=== PATIENT | female | born 1955 | race Caucasian/White ===

== ENCOUNTER 2020-06-02 12:17 | Outpatient (REF) | payer OTHER, SELFPAY ==
--- NOTE | 2020-06-02 12:24 | US_ITS ---
EXAMINATION: US RETROPERITONEAL LIMITED (RENAL ONLY) CLINICAL INFORMATION: Hematuria, renal stones COMPARISON: Abdominal ultrasound dated 12/18/2007 and MRI abdomen dated 11/21/[address] abdomen dated September 2007. TECHNIQUE: Real-time imaging of the kidneys. FINDINGS: RIGHT KIDNEY: 12.0 x 4.5 x 4.8 cm (SAG x AP x TRV). The kidney is normal in size, contour, and echogenicity. Renal cortical thickness is normal. No calculi or focal parenchymal lesions. No hydronephrosis. LEFT KIDNEY: 11.3 x 5.1 x 5.5 cm (SAG x AP x TRV). The kidney is normal in size, contour, and echogenicity. Renal cortical thickness is normal. There are new small central cystic areas questionable for mild hydronephrosis versus peripelvic cysts. No calculi or mass. The liver is echogenic. US/US renal BI IMPRESSION: Normal right kidney. Question new mild left hydronephrosis versus peripelvic cysts..
== END 2020-06-02 12:18 | disposition home or self-care (01) ==
LOC: HO.US 12:17
PROVIDERS: PCP Internal Medicine; Visit Provider Internal Medicine
DX: R31.9 Hematuria, unspecified (principal)
CPT/HCPCS: 76775

== ENCOUNTER 2020-06-10 08:39 | Outpatient (REF) | payer OTHER, SELFPAY ==
[2020-06-10 09:42] LABS: Appearance Urine CLEAR; Color Urine YELLOW; Glucose Urine UA NEG (NEG); Leukocyte Esterase Urine NEG (NEG); Nitrite Urine NEG (NEG); Specific Gravity - Urine 1.025 (1.005-1.025); Urine Blood TRACE (NEG); Urine Cytology See Pathology rpt; Urine Ketones NEG (NEG); Urine Protein NEG (NEG-TRACE)
[2020-06-10 09:56] LABS: Mucus Urine TRACE /LPF; RBC Urine 0-2 /HPF (0); Squamous Epithelial Cell Urine 1+ /LPF; WBC Urine 0-2 /HPF (0-4)
[2020-06-10 09:57] LABS: Alanine Aminotransferase 21 U/L (0-31); Albumin Level 4.3 g/dL (3.5-5.0); Alkaline Phosphatase 84 U/L (39-117); Anion Gap 12 (12-20); Aspartate Amino Transferase 19 U/L (5-31); Bilirubin Direct < 0.2 mg/dL (0.0-0.5); Bilirubin Total 0.3 mg/dL (0.0-1.0); Blood Urea Nitrogen 14 mg/dL (9-16); Calcium 9.3 mg/dL (8.4-10.2); Carbon Dioxide 27 mmol/L (22-29); Chloride 105 mmol/L (96-108); Estimated Glomerular Filt Rate > 60; Glucose Random 98 mg/dL (60-115); Potassium 4.8 mmol/l (3.3-5.1); Sodium 139 mmol/L (135-145); Total Protein 6.5 g/dL (6.5-8.0)
== END 2020-06-10 08:40 | disposition home or self-care (01) ==
LOC: HO.LAB 08:39
PROVIDERS: PCP Internal Medicine; Visit Provider Physician Assistant
DX: R31.29 Other microscopic hematuria (principal); R30.0 Dysuria; N39.0 Urinary tract infection, site not specified; R31.9 Hematuria, unspecified
CPT/HCPCS: 80048; 80076; 81001; 88112

== ENCOUNTER 2020-06-11 11:15 | Outpatient (REF) | payer OTHER, SELFPAY ==
--- NOTE | 2020-06-11 11:19 | US_ITS ---
EXAMINATION: US PELVIS LIMITED (BLADDER) CLINICAL INFORMATION: Other microscopic hematuria. COMPARISON: Renal ultrasound 06/02/2020. Ultrasound abdomen 12/18/2007. MRI abdomen 11/21/2007. CT abdomen 10/11/2007. TECHNIQUE: Real-time imaging of the bladder. FINDINGS: BLADDER: Well distended and normal. Bilateral ureteral jets are demonstrated. Prevoid bladder volume is 501 mL. Postvoid bladder volume is 23 mL. US/US bladder IMPRESSION: Normal appearance of the bladder. Post void residual bladder volume of 23 mL.
== END 2020-06-11 11:16 | disposition home or self-care (01) ==
LOC: HO.HMGCX 11:15
PROVIDERS: PCP Internal Medicine; Visit Provider Physician Assistant
DX: R10.2 Pelvic and perineal pain (principal); R31.29 Other microscopic hematuria
CPT/HCPCS: 76857

== ENCOUNTER 2020-10-25 07:36 | Outpatient (REF) | payer OTHER, SELFPAY ==
[2020-10-25 08:40] LABS: Alanine Aminotransferase 25 U/L (0-31); Anion Gap 12 (12-20); Aspartate Amino Transferase 22 U/L (5-31); Blood Urea Nitrogen 13 mg/dL (9-16); Calcium 9.3 mg/dL (8.4-10.2); Carbon Dioxide 26 mmol/L (22-29); Chloride 103 mmol/L (96-108); Cholesterol 271 mg/dL; Estimated Glomerular Filt Rate > 60; Glucose Fasting 107 mg/dL (60-99); HDL Cholesterol 48 mg/dL; LDL Cholesterol Calculated 160 mg/dl; Potassium 4.4 mmol/L (3.3-5.1); Sodium 137 mmol/L (135-145); Triglycerides 318 mg/dL
[2020-10-25 09:05] LABS: Free T4 (Free Thyroxine) 1.27 ng/dL (0.71-1.85); Thyroid Stimulating Hormone 4.48 uIU/mL (0.32-4.0); Vitamin D 25-OH Total 15.5 ng/mL (>30)
== END 2020-10-25 07:37 | disposition home or self-care (01) ==
LOC: HO.LAB 07:36
PROVIDERS: PCP Internal Medicine; Visit Provider Internal Medicine
DX: Z00.00 Encounter for general adult medical examination without abnormal findings (principal); E78.5 Hyperlipidemia, unspecified; E03.9 Hypothyroidism, unspecified; I10 Essential (primary) hypertension; M85.88 Other specified disorders of bone density and structure, other site
CPT/HCPCS: 36415; 80048; 80061; 82306; 84439; 84443; 84450; 84460

== ENCOUNTER 2020-12-22 08:04 | Outpatient (REF) | payer OTHER, SELFPAY ==
--- NOTE | ~2020-12-22 | MM_ITS ---
EXAMINATION: MM SCREENING DIGITAL BREAST TOMOSYNTHESIS, BILATERAL CLINICAL INFORMATION: Screening. Asymptomatic. The lifetime risk of breast cancer based on the Tyrer-Cuzick Model is 6%. COMPARISON: Mammography: 10/18/2017, 10/08/2015 TECHNIQUE: Digital breast tomosynthesis is performed in both the craniocaudal and mediolateral oblique views along with computer-aided detection (CAD). Synthesized 2D images are generated from the tomosynthesis. Additional left MLO view is provided. FINDINGS: The breasts are heterogeneously dense, which may obscure small masses (ACR BI-RADS breast composition Category c). There are no significant masses, abnormal calcifications, or other abnormalities. The axilla and skin contours are unremarkable. No significant changes from prior studies. MM/MM tomosynthesis screening BI IMPRESSION: No mammographic evidence of malignancy. ASSESSMENT: BI-RADS 1: Negative RECOMMENDATION: Routine annual mammography screening. This patient's information was entered into a reminder system with a target due date for their next mammogram.
== END 2020-12-22 08:05 | disposition home or self-care (01) ==
LOC: HO.MAMMO 08:04
PROVIDERS: PCP Internal Medicine; Visit Provider Internal Medicine
DX: Z12.31 Encounter for screening mammogram for malignant neoplasm of breast (principal)
CPT/HCPCS: 77063; 77067

== ENCOUNTER 2021-10-28 08:25 | Outpatient (REF) | payer OTHER, SELFPAY ==
[2021-10-28 09:46] LABS: Alanine Aminotransferase 61 U/L (0-31); Anion Gap 13 (12-20); Aspartate Amino Transferase 42 U/L (5-31); Blood Urea Nitrogen 13 mg/dL (9-16); Calcium 9.7 mg/dL (8.4-10.2); Carbon Dioxide 24 mmol/L (22-29); Chloride 107 mmol/L (96-108); Cholesterol 239 mg/dL; Estimated Glomerular Filt Rate > 60; Glucose Fasting 104 mg/dL (60-99); HDL Cholesterol 43 mg/dL; LDL Cholesterol Calculated 149 mg/dl; Potassium 4.4 mmol/L (3.3-5.1); Sodium 140 mmol/L (135-145); Triglycerides 235 mg/dL
[2021-10-28 09:59] LABS: Free T4 (Free Thyroxine) 1.34 ng/dL (0.71-1.85); Thyroid Stimulating Hormone 3.84 uIU/mL (0.32-4.0); Vitamin D 25-OH Total 23.9 ng/mL (>30)
== END 2021-10-28 08:26 | disposition home or self-care (01) ==
LOC: HO.LAB 08:25
PROVIDERS: PCP Internal Medicine; Visit Provider Internal Medicine
DX: E78.5 Hyperlipidemia, unspecified (principal); M85.88 Other specified disorders of bone density and structure, other site; E03.9 Hypothyroidism, unspecified; N95.9 Unspecified menopausal and perimenopausal disorder; R73.01 Impaired fasting glucose
CPT/HCPCS: 36415; 80048; 80061; 82306; 84439; 84443; 84450; 84460

== ENCOUNTER 2022-05-31 15:33 | Outpatient (REF) | payer OTHER, SELFPAY ==
--- NOTE | ~2022-05-31 | MM_ITS ---
EXAMINATION: MM SCREENING DIGITAL BREAST TOMOSYNTHESIS, BILATERAL CLINICAL INFORMATION: Screening. Asymptomatic. COMPARISON: Mammography: 12/22/2020, 12/18/2017, 10/08/2015 TECHNIQUE: Digital breast tomosynthesis is performed in both the craniocaudal and mediolateral oblique views along with computer-aided detection (CAD). Synthesized 2D images are generated from the tomosynthesis. FINDINGS: The breasts are heterogeneously dense, which may obscure small masses (ACR BI-RADS breast composition Category c). There are no significant masses, abnormal calcifications, or other abnormalities. Parenchymal pattern is similar to prior exams. No developing density or architectural abnormality. No significant changes. Again, there are benign grouped coarse calcifications posterior 9:00 left breast. The axilla are unremarkable. MM/MM tomosynthesis screening BI IMPRESSION: No mammographic evidence of malignancy. ASSESSMENT: BI-RADS 2: Benign RECOMMENDATION: Routine annual mammography screening. This patient's information was entered into a reminder system with a target due date for their next mammogram.
== END 2022-05-31 15:34 | disposition home or self-care (01) ==
LOC: HO.MAMMO 15:33
PROVIDERS: Visit Provider Internal Medicine
DX: Z12.31 Encounter for screening mammogram for malignant neoplasm of breast (principal)
CPT/HCPCS: 77063; 77067

== ENCOUNTER 2022-06-14 06:55 | Outpatient (REF) | payer OTHER, SELFPAY ==
[2022-06-14 08:07] LABS: Alanine Aminotransferase 36 U/L (0-31); Anion Gap 14 (12-20); Aspartate Amino Transferase 33 U/L (5-31); Blood Urea Nitrogen 11 mg/dL (9-16); Calcium 9.7 mg/dL (8.4-10.2); Carbon Dioxide 27 mmol/L (22-29); Chloride 104 mmol/L (96-108); Cholesterol 256 mg/dL; Estimated Glomerular Filt Rate > 60; Glucose Fasting 98 mg/dL (60-99); HDL Cholesterol 39 mg/dL; LDL Cholesterol Calculated 153 mg/dl; Potassium 4.7 mmol/L (3.3-5.1); Sodium 140 mmol/L (135-145); Triglycerides 323 mg/dL
[2022-06-14 08:31] LABS: Free T4 (Free Thyroxine) 1.33 ng/dL (0.71-1.85); Thyroid Stimulating Hormone 2.18 uIU/mL (0.32-4.0)
[2022-06-14 09:28] LABS: Estimated Average Glucose 105 mg/dL; Hemoglobin A1c % 5.3 %
[2022-06-14 09:48] LABS: Vitamin D 25-OH Total 18.4 ng/mL (>30)
== END 2022-06-14 06:56 | disposition home or self-care (01) ==
LOC: HO.LAB 06:55
PROVIDERS: PCP Internal Medicine; Visit Provider Internal Medicine
DX: Z00.01 Encounter for general adult medical examination with abnormal findings (principal); E78.5 Hyperlipidemia, unspecified; K21.9 Gastro-esophageal reflux disease without esophagitis; M85.88 Other specified disorders of bone density and structure, other site; R73.01 Impaired fasting glucose; E03.9 Hypothyroidism, unspecified
CPT/HCPCS: 36415; 80048; 80061; 82306; 83036; 84439; 84443; 84450; 84460

== ENCOUNTER 2022-10-28 06:33 | Outpatient (REF) | payer OTHER, SELFPAY ==
[2022-10-28 12:36] LABS: Estimated Average Glucose 100 mg/dL; Hemoglobin A1c % 5.1 %
[2022-10-28 12:49] LABS: Alanine Aminotransferase 28 U/L (0-31); Aspartate Amino Transferase 27 U/L (5-31); Cholesterol 226 mg/dL; Glucose Fasting 106 mg/dL (60-99); HDL Cholesterol 47 mg/dL; LDL Cholesterol Calculated 143 mg/dl; Triglycerides 183 mg/dL
[2022-10-28 13:07] LABS: Free T4 (Free Thyroxine) 1.62 ng/dL (0.71-1.85); Vitamin D 25-OH Total 70.5 ng/mL (>30)
== END 2022-10-28 06:34 | disposition home or self-care (01) ==
LOC: HO.HMGCLDS 06:33
PROVIDERS: PCP Internal Medicine; Visit Provider Internal Medicine
DX: E03.9 Hypothyroidism, unspecified (principal); E55.9 Vitamin D deficiency, unspecified; M85.88 Other specified disorders of bone density and structure, other site; R73.01 Impaired fasting glucose; E78.5 Hyperlipidemia, unspecified
CPT/HCPCS: 36415; 80061; 82306; 82947; 83036; 84439; 84443; 84450; 84460

== ENCOUNTER 2023-06-18 06:29 | Outpatient (REF) | payer OTHER, SELFPAY ==
[2023-06-18 07:57] LABS: Estimated Average Glucose 100 mg/dL; Hemoglobin A1c % 5.1 % (<6.0)
[2023-06-18 08:36] LABS: Alanine Aminotransferase 16 U/L (0-31); Anion Gap 12 (12-20); Aspartate Amino Transferase 18 U/L (5-31); Blood Urea Nitrogen 14 mg/dL (9-16); Calcium 9.5 mg/dL (8.4-10.2); Carbon Dioxide 26 mmol/L (22-29); Chloride 106 mmol/L (96-108); Cholesterol 250 mg/dL (<200); Estimated Glomerular Filt Rate > 60; Glucose Fasting 93 mg/dL (60-99); HDL Cholesterol 53 mg/dL (>40); LDL Cholesterol Calculated 162 mg/dL (<100); Potassium 4.6 mmol/L (3.3-5.1); Sodium 139 mmol/L (135-145); Triglycerides 178 mg/dL (<150)
[2023-06-18 08:53] LABS: Thyroid Stimulating Hormone 2.15 uIU/mL (0.32-4.0); Vitamin D 25-OH Total 28.9 ng/mL (>30)
== END 2023-06-18 06:30 | disposition home or self-care (01) ==
LOC: HO.LAB 06:29
PROVIDERS: PCP Internal Medicine; Visit Provider Internal Medicine
DX: R73.01 Impaired fasting glucose (principal); M85.88 Other specified disorders of bone density and structure, other site; E03.9 Hypothyroidism, unspecified; E78.5 Hyperlipidemia, unspecified; Z86.39 Personal history of other endocrine, nutritional and metabolic disease; Z78.0 Asymptomatic menopausal state
CPT/HCPCS: 36415; 80048; 80061; 82306; 83036; 84443; 84450; 84460

== ENCOUNTER 2023-07-17 13:10 | Outpatient (AMB) | payer OTHER, SELFPAY ==
--- NOTE | 2023-07-17 13:46 | A.OFFPC_ITS ---
Vital Signs 07/17/23 13:47 Height 4 ft 11 in Weight 132 lb BMI 26.7 BP 135/74 Blood Pressure Location Rt brachial Position Sitting Pulse 65 Pulse Source Pulse Oximeter Pulse Oximetry (%) 98 Oxygen Delivery Method Room Air Intake Visit Reasons: Annual PE Intake Note: Pt is here for her Annual PE Allergies No Known Allergies [No Known Allergies*] Allergy (Verified 08/23/23 11:04) Medication List - Last Reconciled 08/23/23 by Nanette Sanford MD cholecalciferol (vitamin D3) 1,250 mcg PO QWEEK 3 months levothyroxine 75 mcg PO DAILY omeprazole 40 mg PO DAILY Tobacco use date assessed: 07/17/23 Fall risk assessment: No Falls in past year Last assessed Fall Risk: 07/17/23 Dental Screening Dental Screen Date: 07/17/23 Did you have a dental visit in the last 12 months?: Yes Did you have a dental problem in the last 6 months where you did not have access to dental care?: No Was dental information given to patient?: Patient has dentist HPI Annual PE HPI Details 67-year-old lady with hypothyroidism, os teopenia of multiple sites, has impaired fasting glucose, dyslipidemia diet controlled, and chronic GERD, here today for her physical exam. She has been following healthy diet and has been exercising regularly. Has lost weight with lifestyle changes and feels better, more energy. She is due for her colonoscopy, has history of tubular adenoma, last procedure done by Dr. Magallanes was in 2015. Patient however does not want to do the procedure and would like to 1st do Cologuard testing. She is scheduled already for her bone density scan and screening mammogram in July 2023. [facility] Medical History (Updated 08/23/23 @ 11:19 by Nanette Sanford MD) Osteopenia of multiple sites Smoker unmotivated to quit Refused influenza vaccine Impaired fasting glucose Osteopenia of lumbar spine Tubular adenoma of colon History of chronic pancreatitis Dyslipidemia Acquired hypothyroidism Chronic GERD Surgical History Hx of colonoscopy Family History Mother Lung cancer Social History Housing: House Alcohol intake: never Patient Tobacco Use Status: Current everyday Tobacco user Cigarettes Per Day: 4 e-Cigarette/Vaping Use: Never Used service: No Current occupational status: employed Cognitive needs: No Hearing needs: No Vision needs: Yes Questionnaire PHQ-9 Over the last 2 weeks, how often have you been bothered by any of the following problems? Depression Screening Interpretation: Negative Depression Screening Done: Yes Source: Developed by Drs. Real Chatterjee, Alena Bullard, Boy Ordonez and colleagues, with an educational josh from [employer]. Thrive Questionnaire Date Thrive assessed: 10/30/22 AUDIT C Alcohol Use Questionnaire (AUDIT-C) 1. How often do you have a drink containing alcohol?: Never Total Score: 0 LATONYA-7 AMB Questionnaire LATONYA-7 Date LATONYA - 7 assessed: 10/30/22 Source: Developed by Drs. Real Chatterjee, Alena Bullard, Boy Ordonez and colleagues, with an educational josh from [employer]. Review of Systems Const Denies body aches, Denies fatigue, Denies fever(s), Denies headache(s) and Denies weakness Eyes Denies change in vision ENT Denies dizziness, Denies headache(s), Denies nasal congestion, Denies nasal discharge and Denies sore throat Card Denies chest pain, Denies lightheadedness, Denies palpitations, Denies dyspnea and Reports dyspnea on exertion Resp Denies chest congestion, Denies cough, Denies dyspnea, Reports dyspnea on exertion and Denies wheezing GI Denies abdominal pain, Denies change in bowel habits and Denies heartburn Denies urinary frequency, Denies dysuria and Reports urinary urgency Musc Reports no additional complaints Skin/Breast Denies breast skin changes, Denies breast pain, Denies breast mass, Denies lesio ns and Denies rash Neuro Denies dizziness, Denies headache(s) and Denies weakness Psych Reports as per HPI Endo Denies fatigue, Denies polydipsia, Denies polyuria and Denies palpitations Albino/Lymph Denies easy bruising Aller/Immun Denies seasonal rhinorrhea and Denies wheezing Physical exam (Primary Care) Vital Signs: Last Vital Signs Pulse 65 07/17/23 13:47 BP 135/74 07/17/23 13:47 Pulse Ox 98 07/17/23 13:47 Oxygen Delivery Method Room Air 07/17/23 13:47 BMI result Body Mass Index 26.7 Tobacco/Smoking Status: Tobacco use Status Tobacco use date assessed 07/17/23 07/17/23 13:52 Patient Tobacco Use Status Current everyday Tobacco 07/17/23 13:52 e-Cigarette/Vaping Use Never Used 07/17/23 13:52 Are you ready to quit: No Depression Screening Interpretation: Negative Thrive Assessment: Date of Thrive Assessment Date Thrive assessed 10/30/22 07/17/23 13:52 Const General: comfortable, no acute distress, awake and Physically active Nutritional Appearance: obese Orientation/consciousness: patient oriented x3 HENMT Ears: hearing grossly normal bilaterally, external ears normal, TM's normal bilaterally and EAC's normal General nose exam: No nasal discharge present Mouth: Normal oral and palatal mucosa present, tongue normal, oropharynx normal and moist mucous membranes Eyes General: appearance normal, both eyes and all related structures Eyelids: Yes eyelid abnormality (Upper eyelid slightly drooping bilaterally) Neck Neck: Yes full ROM, Yes no lymphadenopathy and Yes supple Thyroid: Thyroid normal Chest Breast/axilla palpation: normal palpation of the breasts Resp Auscultation: clear to auscultation bilaterally Cardio Other: S1-S2 present regular rate and rhythm GI Inspection: Yes obesity Palpation (GI): Soft to palpation, nontender, no guarding and no masses Auscultation: normal bowel sounds General: Yes no CVA tenderness Back/Spine/Pelvis Back: no CVA tenderness and No back tenderness Skin General skin exam: no rashes or lesions noted Neuro General: patient oriented x3, gait normal, moves all extremities, Normal light touch and pain sensation, no focal motor deficits and CN's II-XI intact bilaterally Extrem General: Yes full ROM, Yes no joint enlargement, Yes no pedal edema, Yes no calf tenderness and Yes normal gait Psych Appearance: grossly normal and well kempt Mental Status: mental status grossly normal Speech and movement: Normal speech and movement present Affect: normal affect Attitude: cooperative Thought process: Normal thought process present Immunizations pneumoc 20-denise conj-dip cr(PF) 0.5 mL IM syringe Performing Provider: Nanette Sanford MD Performing Location: [facility] Administered by: Tanvi Patricio CMA on 07/17/23 14:39 Dose Route Admin Location Dispensed Lot Number Expiration Date NDC Lawn Mower Sharpener 0.5 mL IM Right Deltoid 0.5 mL [id number] 02/27/24 9342-5640-13 WYETH/PFIZER VIS Given Date VIS Provided VIS Publication Date 07/17/23 Single Vaccine 21 Eligibility Eligibility Date Funding Source Not VFC Eligible 07/17/23 Private Results Reviewed Results Reviewed: Name: Marcia Gomez Age/Sex: 67/F : 1955 Unit#: [id number] Attend Dr: Nanette Sanford MD Re06/18/23 Status: DEP REF Location: .LAB Disch: SPEC : [id number] GIO: 06/18/23 STATUS: COMP REQ : [id number] RECD: 06/18/[address]: Nanette Sanford MD COMP: 06/18/23 ENTERED: 06/18/[address]: ORDERED: Met Prof Fast, AST, ALT, Lipid Panel, Vitamin D 25-OH, TSH Test Result Flag Reference Site Sodium 139 135-145 mmol/L Potassium 4.6 3.3-5.1 mmol/L CL 106 96-108 mmol/L CO2 26 22-29 mmol/L Gap 12 12-20 BUN 14 9-16 mg/dL Creat 0.76 0.5-1.4 mg/dL EGFR > 60 NOTE: For -[place] individuals, multiply the result by 1.210. Chronic Kidney Disease: Estimated GFR < 60 mL/min/1.73m2 Severe Kidney Disease: Estimated GFR < 15 mL/min/1.73m2 FBS 93 60-99 mg/dL CA 9.5 8.4-10.2 mg/dL AST (GOT) 18 5-31 U/L ALT (GPT) 16 0-31 U/L Triglyceride 178 H <150 mg/dL Desirable Triglyceride: less than 150 mg/dL Borderline High Triglyceride 150-199 mg/dL High Triglyceride: 200-499 mg/dL Very High Triglyceride: greater than or equal to 5OO mg/dL Cholesterol 250 H <200 mg/dL Desirable Cholesterol: less than 200 mg/dL Borderline High Cholesterol: 200-239 mg/dL High Cholesterol: greater than 239 mg/dL LDL Calculated 162 H <100 mg/dL Desirable LDL: less than 100 mg/dL Near Optimal/Above Optimal LDL: 110-129 mg/dL Borderline High LDL: 130-159 mg/dL High LDL: 160-189 mg/dL Very High LDL: greater than or equal to 190 mg/dL HDL 53 >40 mg/dL Desirable HDL: greater than 40 mg/dL Note: This HDL assay may give artificially low results in patients with liver disease. Vit D 25-OH Tot 28.9 L >30 ng/mL Health Based Reference Values* < 20 ng/mL Deficient 20-30 ng/mL Insufficient > 30 ng/mL Sufficient *Hardeep JIMENEZ. N Engl J Med. 2007;357:266-280 Care must be taken in interpreting Vitamin D results from different laboratories and methodologies. Published data demonstrated that results from patients undergoing hemodialysis may show a negative bias when tested with various automated 25-OH vitamin D assays when compared to LC-MS/MS. When testing samples from patients whose predominant fo rm of Vitamin D is Vitamin D2, such as patients receiving Vitamin D2 supplementation, results that are subtherapeutic should be confirmed with another method such as LC-MS/MS. TSH 3rd Gen. 2.15 0.32-4.0 uIU/mL TSH 3rd Generation ([facility]) Assessment and Plan Assessment & Plan (1) Annual visit for general adult medical examination with abnormal findings: Code(s): Z00.01 - Encounter for general adult medical examination with abnormal findings Plan: Discuss recent lab results with patient which showed high LDL cholesterol. Continue with adherence to healthy eating habits , low-cholesterol less processed food, more fish, vegetables and get regular exercise Recommended dental visit every 6 months and regular eye exams, at least every 2 years. Take adequate calcium in diet and vitamin-D 3 at 2000 IU per cap once a day, in addition to weight-bearing exercises to help maintain good muscle tone and weight control. Instructed to do self-breast exam, and get yearly mammogram, ordered for next year, together with bone density scan. Patient does not want to get any flu vaccine, reminded to get COVID booster.. Has history of tubular adenoma but does not want to get colonoscopy, referred for Cologuard testing, and patient aware that if positive will need eventually a colonoscopy procedure. (2) Osteopenia of multiple sites: Code(s): M85.89 - Other specified disorders of bone density and structure, multiple sites Plan: Continue with regular weight-bearing exercise, take adequate calcium from dietary sources and vitamin-D 3 supplements. Ordered a bone density scan to be repeated Ordered vitamin-D level (3) Dyslipidemia: Code(s): E78.5 - Hyperlipidemia, unspecified Plan: Reviewed recent fasting lipid profile with patient with elevated LDL cholesterol . Stressed adherence to low-cholesterol diet and regular exercise, at least 30 minutes 3 to 4 times a week. Advised patient to make healthy food choices, eat more fruits, vegetables, whole grains, wild caught fish and low-fat dairy. Limit amount of meat and fried or fatty food products, as well as processed foods and fast foods. Follow-up scheduled with repeat fasting lipid panel in 4months (4) Acquired hypothyroidism: Code(s): E03.9 - Hypothyroidism, unspecified Plan: continue with levothyroxine 75 mcg once a day in a.m., repeat another TSH and free T4 months. (5) Smoker unmotivated to quit: Code(s): F17.200 - Nicotine dependence, unspecified, uncomplicated Plan: Patient strongly advised to stop smoking, as smoking damages blood vessels, degenerative of joints and spine, damage to lungs and heart., predisposes to developing certain cancers like lung, breast, bladder, colon. Recommended to try decreasing cigarette use by 1-2 cigarettes a day. Advised to monitor what triggers are for smoking so that this can be discussed on the next office visit. We can discuss different options to quit smoking when ready. (6) Refused influenza vaccine: Code(s): Z28.21 - Immunization not carried out because of patient refusal (7) Tubular adenoma of colon: Code(s): D12.6 - Benign neoplasm of colon, unspecified Plan: Declined getting procedure for colonoscopy but willing to do Cologuard testing, latter ordered. Patient aware that if test comes back positive, will need a colonoscopy, patient agreeable with plan Orders: Orders 2 XR DEXA axial skeleton 07/17/23 Z12.31 - Encounter for screening mammogram for malignant neoplasm of breast, M85.89 - Other specified disorders of bone density and structure, multiple sites, E89.40 - Asymptomatic postprocedural ovarian failure Free T4 (Free Thyroxine) 10/29/23 E03.9 - Hypothyroidism, unspecified, M85.89 - Other specified disorders of bone density and structure, multiple sites, E78.5 - Hyperlipidemia, unspecified Vitamin D 25-OH Total 10/29/23 M85.89 - Other specified disorders of bone density and structure, multiple sites, E78.5 - Hyperlipidemia, unspecified, E03.9 - Hypothyroidism, unspecified, E55.9 - Vitamin D deficiency, unspecified Lipid Panel 10/29/23 M85.89 - Other specified disorders of bone density and structure, multiple sites, E78.5 - Hyperlipidemia, unspecified, E03.9 - Hypothyroidism, unspecified Aspartate Amino Transferase 10/29/23 M85.89 - Other specified disorders of bone density and structure, multiple sites, E78.5 - Hyperlipidemia, unspecified, E03.9 - Hypothyroidism, unspecified MM tomosynthesis screening BI 07/17/23 Z12.31 - Encounter for screening mammogram for malignant neoplasm of breast, M85.89 - Other specified disorders of bone density and structure, multiple sites, E89.40 - Asymptomatic postprocedural ovarian failure Thyroid Stimulating Hormone 10/29/23 M85.89 - Other specified disorders of bone density and structure, multiple sites, E78.5 - Hyperlipidemia, unspecified, E03.9 - Hypothyroidism, unspecified Alanine Aminotransferase 10/29/23 M85.89 - Other specified disorders of bone density and structure, multiple sites, E78.5 - Hyperlipidemia, unspecified, E03.9 - Hypothyroidism, unspecified Pneumococcal 20 Immunization 07/17/23 Z23 - Encounter for immunization Referrals Cologuard Test Z12.11 - Encounter for screening for malignant neoplasm of colon, Z12.12 - Encounter for screening for malignant neoplasm of rectum Medications: Changed From cholecalciferol (vitamin D3) 1,250 mcg PO QWEEK 3 months 13 caps 0RF To cholecalciferol (vitamin D3) 1,250 mcg PO QWEEK 13 caps 0RF 3 months Coding Level of Care Code Est Pt Prev Care >65y(43038) Diagnoses Annual visit for general adult medical examination with abnormal findings Z00.01 Osteopenia of multiple sites M85.89 Dyslipidemia E78.5 Acquired hypothyroidism E03.9 Smoker unmotivated to quit F17.200 Refused influenza vaccine Z28.21 Tubular adenoma of colon D12.6
[2023-07-17 13:47] VITALS: BP 135/74; PULSE 65; O2SAT 98; BMI 26.7
== END 2023-07-17 16:32 | disposition home or self-care (01) ==
PROVIDERS: Visit Provider Internal Medicine
DX: Z23 Encounter for immunization (principal)
CPT/HCPCS: 90471; 90677; 99397

== ENCOUNTER 2023-08-17 14:32 | Outpatient (REF) | payer OTHER, SELFPAY ==
--- NOTE | ~2023-08-17 | MM_ITS ---
EXAMINATION: BONE DENSITOMETRY CLINICAL INDICATION: Osteopenia. COMPARISON: Previous BD dated 10/18/2017 and baseline BD dated 12/30/2007. TECHNIQUE: Using a [employer] DXA System (software version: 13.1) manufactured by [employer], dual-energy x-ray absorptiometry was performed of the . The images are of good technical quality. Summary results are attached. FINDINGS: LEFT FEMUR, NECK: Current: BMD 0.811 g/cm2, Z-score 0.1, T-score -1.6, osteopenia. Prior: BMD 0.790 g/cm2. Baseline: BMD 0.826 g/cm2. LEFT FEMUR, TOTAL: Current: BMD 0.900 g/cm2, Z-score 0.6, T-score -0.9, normal, 2.0% decrease from previous, 4.7% decrease from baseline (<5% change is not significant). Prior: BMD 0.918 g/cm2. Baseline: BMD 0.944 g/cm2. AP SPINE L1-L4: Current: BMD 0.940 g/cm2, Z-score -0.2, T-score -2.0, osteopenia, 0.9% decrease from previous, 1.2% decrease from baseline (<5% change is not significant). Prior: BMD 0.949 g/cm2. Baseline: BMD 0.951 g/cm2. IDENTIFIED RISK FACTORS: Menopause, tobacco use (current smoker). HISTORY OF FRACTURE: Spine. MEDICATIONS: Vitamin D. MM/XR DEXA axial skeleton IMPRESSION: 1. DIAGNOSIS: Osteopenia based on the lowest T-score value of -2.0 in the lumbar spine applying World Health Organization criteria. 2. 10-YEAR FRACTURE RISK PREDICTION, FRAX: Major osteoporotic fracture (clinical spine, forearm, hip or shoulder) 10.3%. Hip fracture 2.3%. 3. Treatment Recommendations: NOF guidelines recommend consideration for treatment in postmenopausal women and men age 50 and older presenting with the following: -A hip or vertebral (clinical or morphometric) fracture. -T-score less than or equal to -2.5 at the femoral neck or spine after appropriate evaluation to exclude secondary causes. -Low bone mass at the hip or spine and a 10-year fracture probability by FRAX of greater than or equal to 3% for hip fracture or greater than or equal to 20% for major osteoporotic fracture based on the [place] adapted WHO algorithm. 4. Other Recommendations: All treatment decisions require clinical judgment and consideration of individual patient factors, including patient preferences, comorbidities, previous drug use, risk factors not captured in the FRAX model (e.g. frailty, falls, vitamin D deficiency, increased bone turnover, interval significant decline in bone density) and possible under or overestimation of fracture risk by FRAX. Additional medical evaluation for secondary cause of low bone mineral density may be appropriate. FUTURE SCAN RECOMMENDATION: People with diagnosed cases of osteoporosis or at high risk for fracture should have regular bone mineral density tests. For patients eligible for Medicare, routine testing is allowed once every 2 years. The testing frequency can be increased to one year for patients who have rapidly progressing disease, those who are receiving or discontinuing medical therapy to restore bone mass, or have additional risk factors.
--- NOTE | ~2023-08-17 | MM_ITS ---
EXAMINATION: MM SCREENING DIGITAL BREAST TOMOSYNTHESIS, BILATERAL CLINICAL INFORMATION: Screening. Asymptomatic. COMPARISON: Mammography: This study is compared with prior exams dating back to 2018. TECHNIQUE: Digital breast tomosynthesis is performed in both the craniocaudal and mediolateral oblique views along with computer-aided detection (CAD). Synthesized 2D images are generated from the tomosynthesis. FINDINGS: The breasts are heterogeneously dense, which may obscure small masses (ACR BI-RADS breast composition Category c). There are no significant masses, abnormal calcifications, or other abnormalities. Few, adjacent, coarse benign calcifications are present in the medial aspect of the left breast. This is likely related to an involuting fibroadenoma. MM/MM tomosynthesis screening BI IMPRESSION: No mammographic evidence of malignancy. ASSESSMENT: BI-RADS BI-RADS 2 - Benign Findings RECOMMENDATION: Routine annual mammography screening. 1 year F/U This examination should not preclude the clinical evaluation of a suspicious palpable abnormality. This patient's information was entered into a reminder system with a target due date for their next mammogram.
== END 2023-08-17 14:33 | disposition home or self-care (01) ==
LOC: HO.MAMMO 14:32
PROVIDERS: PCP Internal Medicine; Visit Provider Internal Medicine
DX: Z12.31 Encounter for screening mammogram for malignant neoplasm of breast (principal); Z13.820 Encounter for screening for osteoporosis; Z78.0 Asymptomatic menopausal state; M85.89 Other specified disorders of bone density and structure, multiple sites; E89.40 Asymptomatic postprocedural ovarian failure
CPT/HCPCS: 77063; 77067; 77080

== ENCOUNTER → 2023-08-17 15:00 | Outpatient (BNV) | payer OTHER, SELFPAY | PROVIDERS: PCP Internal Medicine; Visit Provider Radiology Diagnostic Radiology | DX: Z12.31 Encounter for screening mammogram for malignant neoplasm of breast (principal) | CPT/HCPCS: 77063; 77067 ==

== ENCOUNTER 2023-10-12 08:02 | Outpatient (AMB) | payer OTHER, SELFPAY ==
[2023-10-12 08:04] VITALS: BP 135/64; PULSE 68; O2SAT 98; BMI 26.9
--- NOTE | 2023-10-12 08:04 | A.OFFPC_ITS ---
Vital Signs 10/12/23 08:04 Height 4 ft 11 in Weight 133 lb BMI 26.9 BP 135/64 Blood Pressure Location Rt brachial Position Sitting Pulse 68 Pulse Source Pulse Oximeter Pulse Oximetry (%) 98 Oxygen Delivery Method Room Air Intake Visit Reasons: hair loss concerns Intake Note: Pt is here today to discuss concerns of hair loss Allergies No Known Allergies [No Known Allergies*] Allergy (Verified 10/12/23 08:35) Medication List - Last Reconciled 10/12/23 by Nanette Sanford MD cholecalciferol (vitamin D3) 1,250 mcg PO QWEEK 3 months levothyroxine 75 mcg PO DAILY omeprazole 40 mg PO DAILY Tobacco use date assessed: 10/12/23 Fall risk assessment: No Falls in past year Last assessed Fall Risk: 10/12/23 Dental Screening Dental Screen Date: 10/12/23 Did you have a dental visit in the last 12 months?: Yes Did you have a dental problem in the last 6 months where you did not have access to dental care?: No Was dental information given to patient?: Patient has dentist HPI hair loss concerns HPI Details 67-year-old lady with hypothyroidism, po stmenopausal, has GERD, and recent COVID infection April 2023, here today complaining of diffuse hair loss which she and her hairdresser her started noticing for the last 3 months. She has been feeling well otherwise with no other complaints at present time. FOR[facility]LY [facility] Medical History Nonscarring hair loss Osteopenia of multiple sites Smoker unmotivated to quit Refused influenza vaccine Impaired fasting glucose Osteopenia of lumbar spine Tubular adenoma of colon History of chronic pancreatitis Dyslipidemia Acquired hypothyroidism Chronic GERD Surgical History Hx of colonoscopy Family History Mother Lung cancer Social History Housing: House Alcohol intake: never Patient Tobacco Use Status: Current everyday Tobacco user Cigarettes Per Day: 4 e-Cigarette/Vaping Use: Never Used service: No Current occupational status: employed Cognitive needs: No Hearing needs: No Vision needs: Yes Questionnaire PHQ-9 Over the last 2 weeks, how often have you been bothered by any of the following problems? 1. Little interest or pleasure in doing things: not at all 2. Feeling down, depressed, or hopeless: not at all 3. Trouble falling or staying asleep, or sleeping too much: not at all 4. Feeling tired or having little energy: not at all 5. Poor appetite or overeating: not at all 6. Feeling bad about yourself - or that you are a failure or have let yourself or your family down: not at all 7. Trouble concentrating on things, such as reading the newspaper or watching television: not at all 8. Moving or speaking so slowly that other people could have noticed. Or the opposite - being so fidgety or restless that you have been moving around a lot more than usual: not at all 9. Thoughts that you would be better off or of hurting yourself in some way: not at all Total score: 0 Depression Screening Interpretation: Negative Depression Screening Done: Yes [id number] - PHQ-9 Billing: Yes Source: Developed by Drs. Real Chatterjee, Alena Bullard, Boy Ordonez and colleagues, with an educational josh from [email or web address]. Thrive Questionnaire Date Thrive assessed: 10/12/23 I am a: Patient What is your living situation today?: I have a steady place to live Within the past 12 months, did the food you bought not last and you didn't have the money to get more?: Never true Within the past 12 months, did you worry whether your food would run out before you got money to buy more?: Never true Do you have trouble paying for medicines?: No Do you have trouble getting transportation to medical appointments?: No Do you have trouble paying your heating and electricity bill?: No Do you have trouble taking care of your child, family member or friend?: No Do you have trouble with day-to-day activities such as bathing, preparing meals, shopping, managing finances, etc.?: No Are you currently unemployed and looking for a job?: No Are you interested in more education?: No THRIVE Score: 0 AUDIT C Alcohol Use Questionnaire (AUDIT-C) 1. How often do you have a drink containing alcohol?: Never Total Score: 0 LATONYA-7 AMB Questionnaire LATONYA-7 Date LATONYA - 7 assessed: 10/12/23 Feeling nervous, anxious, or on edge: 1 = Several days Not being able to stop or control worryin = Several days Worrying too much about different things: 1 = Several days Trouble relaxin = Not at all Being so restless that it is hard to sit still: 1 = Several days Becoming easily annoyed or irritable: 0 = Not at all Feeling afraid as if something awful might happen: 0 = Not at all Total LATONYA-7 score (0-4 normal; 5-9 mild; 10-14 moderate; 15-21 severe): 4 Source: Developed by Drs. Real Chatterjee, Alena Bullard, Boy Ordonez and colleagues, with an educational josh from [email or web address]. LATONYA-7 Assessment Billing LATONYA-7 Assessment Tool: LATONYA-7 Assessment 16866 Review of Systems Const Denies fatigue and Denies headache(s) Eyes Denies change in vision ENT Denies dizziness, Denies headache(s) and Denies nasal congestion Card Denies chest pain, Denies lightheadedness, Denies palpitations and Denies dyspnea Resp Denies chest congestion, Denies cough, Denies dyspnea and Denies wheezing Denies urinary frequency, Denies dysuria and Reports urinary urgency Musc Reports no additional complaints Neuro Denies dizziness and Denies headache(s) Endo Denies fatigue, Denies polydipsia, Denies polyuria and Denies palpitations Albino/Lymph Denies easy bruising Aller/Immun Denies seasonal rhinorrhea and Denies wheezing Physical exam (Primary Care) Vital Signs: Last Vital Signs Pulse 68 10/12/23 08:04 BP 135/64 10/12/23 08:04 Pulse Ox 98 10/12/23 08:04 Oxygen Delivery Method Room Air 10/12/23 08:04 BMI result Body Mass Index 26.9 Tobacco/Smoking Status: Tobacco use Status Tobacco use date assessed 10/12/23 10/12/23 08:08 Patient Tobacco Use Status Current everyday Tobacco 10/12/23 08:08 e-Cigarette/Vaping Use Never Used 10/12/23 08:08 Are you ready to quit: No PHQ-9: PHQ-9 Score PHQ-9: Total score 0 10/12/23 08:41 Depression Screening Interpretation: Negative Thrive Assessment: Date of Thrive Assessment Date Thrive assessed 10/12/23 10/12/23 08:34 Const General: no acute distress Orientation/consciousness: patient oriented x3 HENMT Other: Diffuse hair Thinning noted Mouth: Normal oral and palatal mucosa present, tongue normal, oropharynx normal and moist mucous membranes Eyes General: appearance normal, both eyes and all related structures Neck Neck: Yes full ROM, Yes no lymphadenopathy and Yes supple Thyroid: Thyroid normal Chest Breast/axilla palpation: normal palpation of the breasts Cardio Other: S1-S2 present regular rate and rhythm GI Palpation (GI): nontender, no guarding and no masses Auscultation: normal bowel sounds Skin General skin exam: no rashes or lesions noted Neuro General: patient oriented x3, gait normal, moves all extremities, Normal light touch and pain sensation, no focal motor deficits and CN's II-XI intact bilaterally Extrem General: Yes full ROM, Yes no joint enlargement, Yes no pedal edema, Yes no calf tenderness and Yes normal gait Psych Appearance: grossly normal and well kempt Mental Status: mental status grossly normal Speech and movement: Normal speech and movement present Affect: normal affect Attitude: cooperative Thought process: Normal thought process present Assessment and Plan Assessment & Plan (1) Nonscarring hair loss: Code(s): L65.9 - Nonscarring hair loss, unspecified Plan: Check TSH and free T4, vitamin-D, CBC iron profile referred to [facility] dermatology for further evaluation management (2) Chronic GERD: Code(s): K21.9 - Gastro-esophageal reflux disease without esophagitis Plan: Continue omeprazole 40 mg daily (3) Acquired hypothyroidism: Code(s): E03.9 - Hypothyroidism, unspecified Plan: Continued on levothyroxine, will repeat another TFT (4) Dyslipidemia: Code(s): E78.5 - Hyperlipidemia, unspecified Plan: Reviewed lab lipid profile with patient with higher LDL cholesterol as compared to last check , repeat fasting lipids ordered . Stressed importance of adherence to low-cholesterol diet and regular exercise, at least 30 minutes 3 to 4 times a week. Advised patient to make healthy food choices, eat more fruits, vegetables, whole grains, wild caught fish and low-fat dairy. Limit amount of meat and fried or fatty food products, as well as processed foods and fast foods. Orders: Orders Complete Blood Count Auto Diff Today E03.9 - Hypothyroidism, unspecified, E78.5 - Hyperlipidemia, unspecified, K21.9 - Gastro-esophageal reflux disease without esophagitis, L65.9 - Nonscarring hair loss, unspecified, M85.88 - Other specified disorders of bone density and structure, other site IRON PROFILE Today E03.9 - Hypothyroidism, unspecified, E78.5 - Hyperlipidemia, unspecified, K21.9 - Gastro-esophageal reflux disease without esophagitis, L65.9 - Nonscarring hair loss, unspecified, M85.88 - Other specified disorders of bone density and structure, other site Referrals Dermatology Referral L65.9 - Nonscarring hair loss, unspecified Coding Level of Care Code Est Pt Level 4 (77077) Diagnoses Nonscarring hair loss L65.9 Chronic GERD K21.9 Acquired hypothyroidism E03.9 Dyslipidemia E78.5 Additional Codes LATONYA-7 Assessment Billing - LATONYA-7 Assessment Tool: LATONYA-7 Assessment [id number] ([id number])
== END 2023-10-12 11:11 | disposition home or self-care (01) ==
PROVIDERS: PCP Internal Medicine; Visit Provider Internal Medicine
DX: L65.9 Nonscarring hair loss, unspecified (principal); K21.9 Gastro-esophageal reflux disease without esophagitis; E03.9 Hypothyroidism, unspecified; E78.5 Hyperlipidemia, unspecified
CPT/HCPCS: 99214

== ENCOUNTER 2023-10-12 08:32 | Outpatient (REF) | payer OTHER, SELFPAY ==
[2023-10-12 10:26] LABS: MANUAL DIFF FLAG NO
[2023-10-12 10:34] LABS: Basophils Absolute Auto 0.1 X10*3/uL (0.0-0.2); Eosinophils Absolute Auto 0.2 X10*3/uL (0.0-0.4); Eosinophils Percent Auto 2.6 % (0-4); Hematocrit 45.7 % (37.0-47.0); Hemoglobin 15.2 g/dl (12.0-16.0); Imm Gran Abs Auto 0.01 X10*3/uL (0.00-0.03); Imm Gran Pct Auto 0.2 % (0.0-0.4); Lymphocytes Absolute Auto 1.8 X10*3/uL (1.2-4.9); Lymphocytes Percent Auto 31.4 % (20-40); Mean Corpuscular HGB Conc 33.3 g/dl (31.0-35.0); Mean Corpuscular Volume 93.3 fL (80.0-98.0); Mean Platelet Volume 10.2 fL (9.4-12.3); Monocytes Absolute Auto 0.4 X10*3/uL (0.1-1.2); Monocytes Percent Auto 6.9 % (2-11); Neutrophils Absolute Auto 3.4 x10*3/uL (2.0-8.3); Neutrophils Percent Auto 57.9 % (45-73); Platelet Count 232 X10*3/uL (160-400); Red Cell Distribution Width 13.1 % (11.0-16.0); White Blood Count 5.8 X10*3/uL (4.8-10.8)
[2023-10-12 11:09] LABS: Alanine Aminotransferase 13 U/L (0-31); Aspartate Amino Transferase 17 U/L (5-31); Cholesterol 202 mg/dL (<200); HDL Cholesterol 54 mg/dL (>40); Iron 110 mcg/dL (30-160); LDL Cholesterol Calculated 121 mg/dL (<100); Percent Iron Saturation 42 % (15-50); Total Iron Binding Capacity 261 mcg/dL (228-428); Triglycerides 138 mg/dL (<150); Unsaturated Iron Binding 151 ug/dL
[2023-10-12 11:26] LABS: Free T4 (Free Thyroxine) 1.05 ng/dL (0.71-1.85); Thyroid Stimulating Hormone 1.73 uIU/mL (0.32-4.0); Vitamin D 25-OH Total 71.1 ng/mL (>30)
== END 2023-10-12 08:33 | disposition home or self-care (01) ==
LOC: HO.HMGCLDS 08:32
PROVIDERS: PCP Internal Medicine; Visit Provider Internal Medicine
DX: M85.89 Other specified disorders of bone density and structure, multiple sites (principal); E03.9 Hypothyroidism, unspecified; E55.9 Vitamin D deficiency, unspecified; L65.9 Nonscarring hair loss, unspecified; K21.9 Gastro-esophageal reflux disease without esophagitis; M85.88 Other specified disorders of bone density and structure, other site; E78.5 Hyperlipidemia, unspecified
CPT/HCPCS: 36415; 80061; 82306; 83540; 84439; 84443; 84450; 84460; 85025

== ENCOUNTER 2024-07-17 13:47 | Outpatient (AMB) | payer OTHER, SELFPAY ==
--- NOTE | 2024-07-17 14:10 | A.OFFPC_ITS ---
Vital Signs 07/17/24 14:27 Height 4 ft 11 in Weight 152 lb BMI 30.7 BP 130/70 Blood Pressure Location Lt brachial Position Sitting Pulse 73 Pulse Source Pulse Oximeter Pulse Oximetry (%) 97 Oxygen Delivery Method Room Air Intake Visit Reasons: Annual PE Intake Note: Pt is here today for her PE: Allergies No Known Allergies [No Known Allergies*] Allergy (Verified 07/17/24 14:43) Medication List - Last Reconciled 07/17/24 by Nanette Sanford MD levothyroxine 75 mcg PO DAILY minoxidil mg PO nicotine 1 patch transdermal DAILY omeprazole 40 mg PO DAILY Tobacco use date assessed: 07/17/24 Fall risk assessment: No Falls in past year Last assessed Fall Risk: 07/17/24 Dental Screening Dental Screen Date: 07/17/24 Did you have a dental visit in the last 12 months?: Yes Did you have a dental problem in the last 6 months where you did not have access to dental care?: No Was dental information given to patient?: Patient has dentist HPI Annual PE HPI Details - The patient is a 68-year-old female pr esenting today for physical exam - Last mammogram 08/17/23, bone density s can 08/17/23 and negative Cologuard test 08/27/23 - Hyperlipidemia previously managed by d ietary changes; however, weight gain reported after stopping diet. - Osteopenia diagnosed in lumbar spine a nd left femoral neck; bone density screening performed this year. - Nicotine Dependence: Using a nicotine patch (21 mg), considering decreasing dosage; experiences vivid dreams if patch not removed at night. - Alopecia: Hair loss treated with minox ricci; dermatology consult ongoing. No family history noted. - Tobacco Use Disorder: Smoking resumed for 5 years after previous cessation for 10 years. [facility] Medical History (Updated 07/20/24 @ 15:30 by Nanette Sanford MD) History of adenomatous polyp of colon Nonscarring hair loss Osteopenia of multiple sites Smoker unmotivated to quit Refused influenza vaccine Impaired fasting glucose Osteopenia of lumbar spine Tubular adenoma of colon History of chronic pancreatitis Dyslipidemia Acquired hypothyroidism Chronic GERD Surgical History Hx of colonoscopy Family History Mother Lung cancer Social History Housing: House Alcohol intake: never Patient Tobacco Use Status: Former Tobacco user Cigarettes Per Day: 4 e-Cigarette/Vaping Use: Never Used service: No Current occupational status: employed Cognitive needs: No Hearing needs: No Vision needs: Yes Questionnaire PHQ-9 Over the last 2 weeks, how often have you been bothered by any of the following problems? 1. Little interest or pleasure in doing things: not at all 2. Feeling down, depressed, or hopeless: not at all 3. Trouble falling or staying asleep, or sleeping too much: not at all 4. Feeling tired or having little energy: not at all 5. Poor appetite or overeating: not at all 6. Feeling bad about yourself - or that you are a failure or have let yourself or your family down: not at all 7. Trouble concentrating on things, such as reading the newspaper or watching television: not at all 8. Moving or speaking so slowly that other people could have noticed. Or the opposite - being so fidgety or restless that you have been moving around a lot more than usual: not at all 9. Thoughts that you would be better off or of hurting yourself in some way: not at all Total score: 0 Depression Screening Interpretation: Negative Depression Screening Done: Yes Source: Developed by Drs. Real Chatterjee, Alena Bullard, Boy Ordonez and colleagues, with an educational josh from [employer]. Thrive Questionnaire Date Thrive assessed: 10/12/23 I am a: Patient What is your living situation today?: I have a steady place to live Within the past 12 months, did the food you bought not last and you didn't have the money to get more?: Never true Within the past 12 months, did you worry whether your food would run out before you got money to buy more?: Never true Do you have trouble paying for medicines?: No Do you have trouble getting transportation to medical appointments?: No Do you have trouble paying your heating and electricity bill?: No Do you have trouble taking care of your child, family member or friend?: No Do you have trouble with day-to-day activities such as bathing, preparing meals, shopping, managing finances, etc.?: No Are you currently unemployed and looking for a job?: No Are you interested in more education?: No Please select the resources that you would like help with: None Currently or been in a relationship where the following occur: No concerns reported THRIVE Score: 0 AUDIT C Alcohol Use Questionnaire (AUDIT-C) 1. How often do you have a drink containing alcohol?: 2-4 times a month 2. How many drinks containing alcohol do you have on a typical day when you are drinking?: 1 or 2 3. How often do you have six or more drinks on one occasion?: Never Total Score: 2 LATONYA-7 AMB Questionnaire LATONYA-7 Date LATONYA - 7 assessed: 10/12/23 Feeling nervous, anxious, or on edge: 0 = Not at all Not being able to stop or control worryin = Not at all Worrying too much about different things: 0 = Not at all Trouble relaxin = Not at all Being so restless that it is hard to sit still: 0 = Not at all Becoming easily annoyed or irritable: 0 = Not at all Feeling afraid as if something awful might happen: 0 = Not at all Total LATONYA-7 score (0-4 normal; 5-9 mild; 10-14 moderate; 15-21 severe): 0 Source: Developed by Drs. Real Chatterjee, Alena Bullard, Boy Ordonez and colleagues, with an educational josh from [employer]. Review of Systems Const Denies fatigue and Denies headache(s) Eyes Denies change in vision ENT Denies dizziness, Denies headache(s) and Denies nasal congestion Card Denies chest pain, Denies lightheadedness, Denies palpitations and Denies dyspnea Resp Denies chest congestion, Denies cough, Denies dyspnea and Denies wheezing GI Reports no additional complaints Denies urinary frequency, Denies dysuria and Reports urinary urgency Musc Reports no additional complaints Skin/Breast Denies breast pain, Denies breast mass and Denies rash Neuro Denies dizziness and Denies headache(s) Psych Reports no additional complaints Endo Denies fatigue, Denies polydipsia, Denies polyuria and Denies palpitations Albino/Lymph Denies easy bruising Aller/Immun Denies seasonal rhinorrhea and Denies wheezing Physical exam (Primary Care) Vital Signs: Last Vital Signs Pulse 73 07/17/24 14:27 BP 130/70 07/17/24 14:27 Pulse Ox 97 07/17/24 14:27 Oxygen Delivery Method Room Air 07/17/24 14:27 BMI result Body Mass Index 30.7 Tobacco/Smoking Status: Tobacco use Status Tobacco use date assessed 07/17/24 07/17/24 14:14 Patient Tobacco Use Status Former Tobacco user 07/17/24 14:30 e-Cigarette/Vaping Use Never Used 07/17/24 14:11 Are you ready to quit: No PHQ-9: PHQ-9 Score PHQ-9: Total score 0 07/17/24 15:15 Depression Screening Interpretation: Negative Thrive Assessment: Date of Thrive Assessment Date Thrive assessed 10/12/23 07/17/24 14:11 Currently or been in a relationship where the following occur: No concerns reported Const General: no acute distress Orientation/consciousness: patient oriented x3 HENMT Other: Diffuse hair Thinning noted Mouth: Normal oral and palatal mucosa present, tongue normal, oropharynx normal and moist mucous membranes Eyes General: appearance normal, both eyes and all related structures Neck Neck: Yes full ROM, Yes no lymphadenopathy and Yes supple Thyroid: Thyroid normal Chest Breast/axilla palpation: normal palpation of the breasts Cardio Other: S1-S2 present regular rate and rhythm GI Palpation (GI): nontender, no guarding and no masses Auscultation: normal bowel sounds General: Yes no CVA tenderness Back/Spine/Pelvis Back: no CVA tenderness and No back tenderness Skin General skin exam: no rashes or lesions noted Neuro General: patient oriented x3, gait normal, moves all extremities, Normal light touch and pain sensation, no focal motor deficits and CN's II-XI intact bilaterally Extrem General: Yes full ROM, Yes no joint enlargement, Yes no pedal edema, Yes no calf tenderness and Yes normal gait Psych Appearance: grossly normal and well kempt Mental Status: mental status grossly normal Speech and movement: Normal speech and movement present Affect: normal affect Attitude: cooperative Thought process: Normal thought process present Results Reviewed Results Reviewed: Name: Marcia Gomez Age/Sex: 67/F : 1955 Unit#: [id number] Attend Dr: Nanette Sanford MD Re10/12/23 Status: DEP REF Location: [facility] Disch: SPEC : [id number] GIO: 10/12/23 STATUS: COMP REQ : [id number] RECD: 10/12/23-[address]: Nanette Sanford MD COMP: 10/12/23 ENTERED: 10/12/23 [facility] DR: ORDERED: CBC Auto Diff Test Result Flag Reference WBC 5.8 4.8-10.8 X10*3/uL RBC 4.90 4.20-5.50 X10*6/uL HGB 15.2 12.0-16.0 g/dl HCT 45.7 37.0-47.0 % MCV 93.3 80.0-98.0 fL MCH 31.0 27.0-33.0 pg MCHC 33.3 31.0-35.0 g/dl RDW 13.1 11.0-16.0 % PLT 232 160-400 X10*3/uL MPV 10.2 9.4-12.3 fL Neut Pct Auto 57.9 45-73 % ImGran Pct Auto 0.2 0.0-0.4 % Lymp Pct Auto 31.4 20-40 % [place] Pct Auto 6.9 2-11 % Eos Pct Auto 2.6 0-4 % Baso Pct Auto 1.0 0-2 % NRBC Pct Auto 0.0 0.0-0.2 /100WBC ANC Neut Abs # 3.4 2.0-8.3 x10*3/uL ImGran Abs Auto 0.01 0.00-0.03 X10*3/uL Lymph Abs Auto 1.8 1.2-4.9 X10*3/uL [place] Abs Auto 0.4 0.1-1.2 X10*3/uL Eos Abs Auto 0.2 0.0-0.4 X10*3/uL Baso Abs Auto 0.1 0.0-0.2 X10*3/uL NRBC Abs Auto 0.000 0.0-0.012 X10*3/uL Name: Marcia Gomez Age/Sex: 67/F : 1955 Unit#: [id number] Attend Dr: Nanette Sanford MD Re10/12/23 Status: DEP REF Location: [facility] Disch: SPEC : [id number] GIO: 10/12/23 STATUS: COMP REQ : [id number] RECD: 10/12/23-[address]: Nanette Sanford MD COMP: 10/12/23 ENTERED: 10/12/23 [facility] DR: ORDERED: IRON PROF, AST, ALT, Lipid Panel, Vitamin D 25-OH, Free T4, TSH Test Result Flag Reference Iron 110 30-160 mcg/dL TIBC 261 228-428 mcg/dL Saturation 42 15-50 % UIBC 151 ug/dL AST (GOT) 17 5-31 U/L ALT (GPT) 13 0-31 U/L Triglyceride 138 <150 mg/dL Desirable Triglyceride: less than 150 mg/dL Borderline High Triglyceride 150-199 mg/dL High Triglyceride: 200-499 mg/dL Very High Triglyceride: greater than or equal to 5OO mg/dL Cholesterol 202 H <200 mg/dL Desirable Cholesterol: less than 200 mg/dL Borderline High Cholesterol: 200-239 mg/dL High Cholesterol: greater than 239 mg/dL LDL Calculated 121 H <100 mg/dL Desirable LDL: less than 100 mg/dL Near Optimal/Above Optimal LDL: 110-129 mg/dL Borderline High LDL: 130-159 mg/dL High LDL: 160-189 mg/dL Very High LDL: greater than or equal to 190 mg/dL HDL 54 >40 mg/dL Desirable HDL: greater than 40 mg/dL Note: This HDL assay may give artificially low results in patients with liver disease. Vit D 25-OH Tot 71.1 >30 ng/mL Health Based Reference Values* < 20 ng/mL Deficient 20-30 ng/mL Insufficient > 30 ng/mL Sufficient *Hardeep JIMENEZ. N Engl J Med. 2007;357:266-280 Care must be taken in interpreting Vitamin D results from different laboratories and methodologies. Published data demonstrated that results from patients undergoing hemodialysis may show a negative bias when tested with various automated 25-OH vitamin D assays when compared to LC-MS/MS. When testing samples from patients whose predominant form of Vitamin D is Vitamin D2, such as patients receiving Vitamin D2 supplementation, results that are subtherapeutic should be confirmed with another method such as LC-MS/MS. Free T4 1.05 0.71-1.85 ng/dL TSH 3rd Gen. 1.73 0.32-4.0 uIU/mL TSH 3rd Generation ([facility]) Coding Level of Care Code Est Pt Prev Care >65y(79710) Diagnoses Annual visit for general adult medical examination with abnormal findings Z. Acquired hypothyroidism E03.9 Dyslipidemia E78.5 Refused influenza vaccine Z28.21 Osteopenia of multiple sites M85.89 Assessment & Plan Assessment & Plan (1) Annual visit for general adult medical examination with abnormal findings: Code(s): Z00. - Encounter for general adult medical examination with abnormal findings (2) Acquired hypothyroidism: Code(s): E03.9 - Hypothyroidism, unspecified Category: Medical (3) Dyslipidemia: Code(s): E78.5 - Hyperlipidemia, unspecified Category: Medical (4) Refused influenza vaccine: Code(s): Z28.21 - Immunization not carried out because of patient refusal Category: Medical (5) Osteopenia of multiple sites: Code(s): M85.89 - Other specified disorders of bone density and structure, multiple sites Category: Medical Plan - fasting labs ordered today - Completed mammogram and dental check-up; no noted abnormalities. - Pneumococcal and tetanus vaccinations are up-to-date; flu and COVID-19 vaccinations declined. - Consideration of shingles vaccination ongoing. - Continue dietary modifications for cholesterol management. - Monitor blood pressure regularly; engage in lifestyle modifications to maintain control. - Gradually consider reducing nicotine patch use under guidance. - Follow up with dermatology regarding hair loss in August; discuss Nutrafol. - Consider the shingles vaccination after further deliberation. - Maintain regular screenings, including dental, skin, and eye exams. - Engage in regular physical activity as feasible to support overall health. - Contact healthcare provider via the portal for any questions or concerns. - Orders: Orders Thyroid Stimulating Hormone 07/17/24 E03.9 - Hypothyroidism, unspecified, E78.5 - Hyperlipidemia, unspecified, F17.200 - Nicotine dependence, unspecified, uncomplicated, M85.89 - Other specified disorders of bone density and structure, multiple sites, Z00. - Encounter for general adult medical examination with abnormal findings Free T4 (Free Thyroxine) 07/17/24 E03.9 - Hypothyroidism, unspecified, E78.5 - Hyperlipidemia, unspecified, F17.200 - Nicotine dependence, unspecified, uncomplicated, M85.89 - Other specified disorders of bone density and structure, multiple sites, Z00.01 - Encounter for general adult medical examination with abnormal findings Lipid Panel 07/17/24 E03.9 - Hypothyroidism, unspecified, E78.5 - Hyperlipidemia, unspecified, F17.200 - Nicotine dependence, unspecified, uncomplicated, M85.89 - Other specified disorders of bone density and structure, multiple sites, Z00.01 - Encounter for general adult medical examination with abnormal findings Aspartate Amino Transferase 07/17/24 E03.9 - Hypothyroidism, unspecified, E78.5 - Hyperlipidemia, unspecified, F17.200 - Nicotine dependence, unspecified, uncomplicated, M85.89 - Other specified disorders of bone density and structure, multiple sites, Z00.01 - Encounter for general adult medical examination with abnormal findings Alanine Aminotransferase 07/17/24 E03.9 - Hypothyroidism, unspecified, E78.5 - Hyperlipidemia, unspecified, F17.200 - Nicotine dependence, unspecified, uncomplicated, M85.89 - Other specified disorders of bone density and structure, multiple sites, Z00.01 - Encounter for general adult medical examination with abnormal findings Basic Metabolic Panel Fasting 07/17/24 E03.9 - Hypothyroidism, unspecified, E78.5 - Hyperlipidemia, unspecified, F17.200 - Nicotine dependence, unspecified, uncomplicated, M85.89 - Other specified disorders of bone density and structure, multiple sites, Z00.01 - Encounter for general adult medical examination with abnormal findings Vitamin D 25-OH Total 07/17/24 E03.9 - Hypothyroidism, unspecified, E78.5 - Hyperlipidemia, unspecified, F17.200 - Nicotine dependence, unspecified, uncomplicated, M85.89 - Other specified disorders of bone density and structure, multiple sites, Z00.01 - Encounter for general adult medical examination with abnormal findings
[2024-07-17 14:27] VITALS: BP 130/70; PULSE 73; O2SAT 97; BMI 30.7
== END 2024-07-17 15:23 | disposition home or self-care (01) ==
PROVIDERS: PCP Internal Medicine; Visit Provider Internal Medicine
DX: Z00.01 Encounter for general adult medical examination with abnormal findings (principal); E03.9 Hypothyroidism, unspecified; E78.5 Hyperlipidemia, unspecified; Z28.21 Immunization not carried out because of patient refusal; M85.89 Other specified disorders of bone density and structure, multiple sites

== ENCOUNTER → 2024-07-17 13:47 | Outpatient (BNVA) | payer OTHER, SELFPAY | PROVIDERS: PCP Internal Medicine; Visit Provider Internal Medicine ==

== ENCOUNTER 2024-07-25 06:15 | Outpatient (REF) | payer OTHER, SELFPAY ==
[2024-07-25 08:25] LABS: Alanine Aminotransferase 21 U/L (0-31); Anion Gap 11 (12-20); Aspartate Amino Transferase 23 U/L (5-31); Blood Urea Nitrogen 15 mg/dL (9-16); Calcium 9.4 mg/dL (8.4-10.2); Carbon Dioxide 27 mmol/L (22-29); Chloride 107 mmol/L (96-108); Cholesterol 274 mg/dL (<200); Estimated Glomerular Filt Rate > 60; Glucose Fasting 100 mg/dL (60-99); HDL Cholesterol 55 mg/dL (>40); LDL Cholesterol Calculated 166 mg/dL (<100); Potassium 4.4 mmol/L (3.3-5.1); Sodium 141 mmol/L (135-145); Triglycerides 265 mg/dL (<150)
[2024-07-25 08:44] LABS: Thyroid Stimulating Hormone 3.34 uIU/mL (0.32-4.0); Vitamin D 25-OH Total 24.2 ng/mL (>30)
== END 2024-07-25 06:16 | disposition home or self-care (01) ==
LOC: HO.LAB 06:15
PROVIDERS: PCP Internal Medicine; Visit Provider Internal Medicine
DX: Z00.01 Encounter for general adult medical examination with abnormal findings (principal); M85.89 Other specified disorders of bone density and structure, multiple sites; F17.200 Nicotine dependence, unspecified, uncomplicated; E78.5 Hyperlipidemia, unspecified; E03.9 Hypothyroidism, unspecified
CPT/HCPCS: 36415; 80048; 80061; 82306; 84439; 84443; 84450; 84460

== ENCOUNTER 2024-08-22 12:38 | Outpatient (REF) | payer OTHER, SELFPAY | END 2024-08-22 12:39 | disposition home or self-care (01) | LOC: HO.MAMMO 12:38 | PROVIDERS: PCP Internal Medicine; Visit Provider Internal Medicine | DX: Z12.31 Encounter for screening mammogram for malignant neoplasm of breast (principal) | CPT/HCPCS: 77063; 77067 ==

== ENCOUNTER → 2024-08-22 13:00 | Outpatient (BNV) | payer OTHER, SELFPAY | PROVIDERS: PCP Internal Medicine; Visit Provider Internal Medicine | DX: Z12.31 Encounter for screening mammogram for malignant neoplasm of breast (principal) | CPT/HCPCS: 77063; 77067 ==

== ENCOUNTER 2024-09-30 08:06 | Outpatient (REF) | payer OTHER, SELFPAY ==
--- NOTE | ~2024-09-30 | MM_ITS ---
EXAMINATION: MM DIAGNOSTIC DIGITAL BREAST TOMOSYNTHESIS, RIGHT Limited right breast ultrasound. CLINICAL INFORMATION: Call back from screening for asymmetry in the lateral right breast on CC view. COMPARISON: Mammography: Comparison is made with available priors on PACS. TECHNIQUE: Digital breast tomosynthesis is performed in both the craniocaudal and mediolateral oblique views along with computer-aided detection (CAD). Synthesized 2D images are generated from the tomosynthesis. FINDINGS: The breasts are heterogeneously dense, which may obscure small masses (ACR BI-RADS breast composition Category c). Asymmetries in the lateral right breast on CC view does not persist on additional imaging projections. No suspicious masses calcifications or other abnormal findings. Targeted color Doppler ultrasound demonstrates normal fibroglandular breast tissue scanning from 7-11 o'clock. There is no sonographic abnormality. MM/MM tomosynthesis added views R IMPRESSION: No mammographic or sonographic abnormality. ASSESSMENT: BI-RADS BI-RADS 1 - Negative RECOMMENDATION: 1 year F/U Results were provided to the patient at time of visit by the technologist. This patient's information was entered into a reminder system with a target due date for their next mammogram. There is no sonographic abnormality. Electronically signed by: Alethea Stein DO 09/30/2024 09:18 AM TANG
== END 2024-09-30 08:07 | disposition home or self-care (01) ==
LOC: HO.MAMMO 08:06
PROVIDERS: PCP Internal Medicine; Visit Provider Internal Medicine
DX: N64.89 Other specified disorders of breast (principal)
CPT/HCPCS: 76642; 77061; 77065

== ENCOUNTER → 2024-09-30 08:30 | Outpatient (BNV) | payer OTHER, SELFPAY | PROVIDERS: PCP Internal Medicine; Visit Provider Internal Medicine | DX: N64.89 Other specified disorders of breast (principal) | CPT/HCPCS: 76642; 77061; 77065 ==

== ENCOUNTER 2025-07-20 13:11 | Outpatient (AMB) | payer OTHER, SELFPAY ==
--- NOTE | 2025-07-20 13:23 | A.OFFPC_ITS ---
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 Allergies No Known Allergies (No Known Allergies*) Allergy (Verified 07/20/25 14:06) Medication List - Last Reconciled 07/20/25 by Nanette Sanford MD levothyroxine 75 mcg PO DAILY minoxidil mg PO nicotine 1 patch transdermal DAILY omeprazole 40 mg PO DAILY Tobacco use date assessed: 07/20/25 Last assessed Fall Risk: 07/20/25 Dental Screening Dental Screen Date: 07/20/25 Did you have a dental visit in the last 12 months?: Yes Did you have a dental problem in the last 6 months where you did not have access to dental care?: No Was dental information given to patient?: Patient has dentist HPI PE HPI Details 69-year-old lady with past medical histo ry for hypothyroidism, alopecia, osteopenia of lumbar spine, dyslipidemia and chronic GERD, here today for her physical exam. She is up-to-date with her breast cancer screening with last mammogram done 09/30/2024 showing benign findings. Last bone density scan was done 08/17/2023 which showed presence of osteopenia in lumbar spine and left femoral neck, due for a repeat check next year. Up-to-date with her colon cancer screening, with Cologuard done 08/27/2023 showing negative findings. She had history of tubular adenoma removed on previous colonoscopy screenings by Dr. Magallanes, but patient declined doing another colonoscopy procedure and opted to do Cologuard testing instead She takes minoxidil for treatment of alopecia currently followed by Dr. Moeller Has started smoking again, requesting assistance in quitting smoking. Has tried nicotine patches but was having vivid dreams with the patch. - [facility] Medical History (Updated 07/20/25 @ 14:39 by Nanette Sanford MD) Cigarette smoker motivated to quit History of adenomatous polyp of colon Nonscarring hair loss Osteopenia of multiple sites Smoker unmotivated to quit Refused influenza vaccine Impaired fasting glucose Osteopenia of lumbar spine Tubular adenoma of colon History of chronic pancreatitis Dyslipidemia Acquired hypothyroidism Chronic GERD Surgical History Hx of colonoscopy Family History Mother Lung cancer Social History (Updated 07/26/25 @ 23:16 by Nanette Sanford MD) Housing: House Alcohol intake: never Patient Tobacco Use Status: Current someday Tobacco user Cigarettes Per Day: 4 e-Cigarette/Vaping Use: Never Used service: No Current occupational status: employed Cognitive needs: No Hearing needs: No Vision needs: Yes Questionnaire PHQ-9 Over the last 2 weeks, how often have you been bothered by any of the following problems? 1. Little interest or pleasure in doing things: not at all 2. Feeling down, depressed, or hopeless: not at all 3. Trouble falling or staying asleep, or sleeping too much: several days 4. Feeling tired or having little energy: several days 5. Poor appetite or overeating: not at all 6. Feeling bad about yourself - or that you are a failure or have let yourself or your family down: not at all 7. Trouble concentrating on things, such as reading the newspaper or watching television: not at all 8. Moving or speaking so slowly that other people could have noticed. Or the opposite - being so fidgety or restless that you have been moving around a lot more than usual: not at all 9. Thoughts that you would be better off or of hurting yourself in some way: not at all Total score: 2 Depression Screening Interpretation: Negative Depression Screening Done: Yes 16840 - PHQ-9 Billing: Yes Source: Developed by Drs. Real Chatterjee, Alena Bullard, Boy Ordonez and colleagues, with an educational josh from [employer]. Thrive Questionnaire Date Thrive assessed: 07/13/25 I am a: Patient What is your living situation today?: I have a steady place to live Within the past 12 months, did the food you bought not last and you didn't have the money to get more?: Never true Within the past 12 months, did you worry whether your food would run out before you got money to buy more?: Never true Do you have trouble paying for medicines?: No Do you have trouble getting transportation to medical appointments?: No Do you have trouble paying your heating and electricity bill?: No Do you have trouble taking care of your child, family member or friend?: No Do you have trouble with day-to-day activities such as bathing, preparing meals, shopping, managing finances, etc.?: No Are you currently unemployed and looking for a job?: No Are you interested in more education?: No Please select the resources that you would like help with: None Currently or been in a relationship where the following occur: No concerns reported THRIVE Score: 0 AUDIT C Alcohol Use Questionnaire (AUDIT-C) 1. How often do you have a drink containing alcohol?: 2-4 times a month 2. How many drinks containing alcohol do you have on a typical day when you are drinking?: 1 or 2 3. How often do you have six or more drinks on one occasion?: Weekly Total Score: 5 Score Reviewed/Action Taken: Yes LATONYA-7 AMB Questionnaire LATONYA-7 Date LATONYA - 7 assessed: 07/20/25 Feeling nervous, anxious, or on edge: 1 = Several days Not being able to stop or control worryin = Several days Worrying too much about different things: 1 = Several days Trouble relaxin = Several days Being so restless that it is hard to sit still: 1 = Several days Becoming easily annoyed or irritable: 1 = Several days Feeling afraid as if something awful might happen: 0 = Not at all Total LATONYA-7 score (0-4 normal; 5-9 mild; 10-14 moderate; 15-21 severe): 6 Source: Developed by Drs. Real Chatterjee, Alena Bullard, Boy Ordonez and colleagues, with an educational josh from [employer]. Review of Systems Const Denies fatigue and Denies headache(s) Eyes Denies change in vision ENT Denies dizziness, Denies headache(s) and Denies nasal congestion Card Denies chest pain, Denies lightheadedness, Denies palpitations and Denies dyspnea Resp Denies chest congestion, Denies cough, Denies dyspnea and Denies wheezing GI Reports no additional complaints Denies urinary frequency, Denies dysuria and Reports urinary urgency Musc Reports no additional complaints Skin/Breast Denies breast pain, Denies breast mass and Denies rash Neuro Denies dizziness and Denies headache(s) Psych Reports no additional complaints Endo Denies fatigue, Denies polydipsia, Denies polyuria and Denies palpitations Albino/Lymph Denies easy bruising Aller/Immun Denies seasonal rhinorrhea and Denies wheezing Physical exam (Primary Care) Vital Signs: Last Vital Signs Temp 98.8 F 07/20/25 13:39 Pulse 89 07/20/25 13:39 Resp 16 07/20/25 13:39 BP 130/64 07/20/25 13:39 Pulse Ox 95 07/20/25 13:39 Oxygen Delivery Method Room Air 07/20/25 13:39 BMI result Body Mass Index 31.4 Tobacco/Smoking Status: Tobacco use Status Tobacco use date assessed 07/20/25 07/20/25 13:28 Patient Tobacco Use Status Former Tobacco user 07/20/25 13:28 e-Cigarette/Vaping Use Never Used 07/20/25 13:28 Are you ready to quit: No PHQ-9: PHQ-9 Score PHQ-9: Total score 2 07/20/25 14:13 Depression Screening Interpretation: Negative Thrive Assessment: Date of Thrive Assessment Date Thrive assessed 07/13/25 07/20/25 13:28 Currently or been in a relationship where the following occur: No concerns reported Const General: no acute distress Orientation/consciousness: patient oriented x3 HENMT Mouth: Normal oral and palatal mucosa present, tongue normal, oropharynx normal and moist mucous membranes Eyes General: appearance normal, both eyes and all related structures Neck Neck: Yes full ROM, Yes no lymphadenopathy and Yes supple Thyroid: Thyroid normal Chest Breast/axilla palpation: normal palpation of the breasts Resp Auscultation: clear to auscultation bilaterally Cardio Other: S1-S2 present regular rate and rhythm GI Palpation (GI): nontender, no guarding and no masses Auscultation: normal bowel sounds General: Yes no CVA tenderness Back/Spine/Pelvis Back: no CVA tenderness and No back tenderness Skin General skin exam: no rashes or lesions noted Neuro General: patient oriented x3, gait normal, moves all extremities, Normal light touch and pain sensation, no focal motor deficits and CN's II-XI intact bilaterally Extrem General: Yes full ROM, Yes no joint enlargement, Yes no pedal edema, Yes no calf tenderness and Yes normal gait Psych Appearance: grossly normal and well kempt Mental Status: mental status grossly normal Speech and movement: Normal speech and movement present Affect: normal affect Coding Level of Care Code Est Pt Prev Care >65y(45014) Diagnoses Annual visit for general adult medical examination with abnormal findings Z00. Acquired hypothyroidism E03.9 Dyslipidemia E78.5 Impaired fasting glucose R73.01 Osteopenia of multiple sites M85.89 Cigarette smoker motivated to quit F17.210 Additional Codes PHQ-9 - 29460 - PHQ-9 Billing: Yes ([id number]) Assessment & Plan Assessment & Plan (1) Annual visit for general adult medical examination with abnormal findings: Code(s): Z00. - Encounter for general adult medical examination with abnormal findings Plan: Will check appropriate labs. Recommended dental visit every 6 months and regular eye exams, at least every 2 years. Take adequate calcium in diet and vitamin-D 3 at 2000 IU per cap once a day, in addition to weight-bearing exercises to help maintain good muscle tone and weight control. Instructed to do self-breast exam, and continue to get yearly mammogram. Had a negative Cologuard test done in 2023, repeat due again in 2026. Already her pneumococcal vaccination and Tdap, but declines getting flu vaccine and COVID booster. Recommended to get the shingles vaccine (2) Acquired hypothyroidism: Code(s): E03.9 - Hypothyroidism, unspecified Category: Medical Plan: Currently on levothyroxine, will recheck thyroid stimulating hormone and free T4 levels (3) Dyslipidemia: Code(s): E78.5 - Hyperlipidemia, unspecified Category: Medical Plan: Fasting lipid panel ordered (4) Impaired fasting glucose: Code(s): R73.01 - Impaired fasting glucose Category: Medical Plan: Your previous fasting blood sugars were elevated above 100 mg/dL. Impaired glucose metabolism increases the risk for developing diabetes mellitus type 2, as well as heart attack and stroke later on. Lifestyle changes that promotes weight loss, healthy eating habits, and regular exercise are important, and can prevent the progression to diabetes (5) Osteopenia of multiple sites: Code(s): M85.89 - Other specified disorders of bone density and structure, multiple sites Category: Medical Plan: Stressed importance of doing regular weight-bearing exercise at least 30 minutes daily, take adequat calcium from dietary sources, and advised to start taking vitamin D3 at 2000 units daily. Repeat bone density due, appointment for repeat bone density scan scheduled (6) Cigarette smoker motivated to quit: Code(s): F17.210 - Nicotine dependence, cigarettes, uncomplicated Category: Social Hx Plan: Prescription sent for varenicline starter pack patient instructed on use, advised to take it with a beam and a glass of water, side effects discussed with patient which may include nausea, reviewed dreams, schedule a follow-up regarding smoking cessation in 4 weeks Orders: Orders Basic Metabolic Panel Fasting 08/01/25 E03.9 - Hypothyroidism, unspecified, E78.5 - Hyperlipidemia, unspecified, M85.89 - Other specified disorders of bone density and structure, multiple sites, R73.01 - Impaired fasting glucose Hemoglobin and Hematocrit 08/01/25 E03.9 - Hypothyroidism, unspecified, E78.5 - Hyperlipidemia, unspecified, M85.89 - Other specified disorders of bone density and structure, multiple sites, R73.01 - Impaired fasting glucose Alanine Aminotransferase 08/01/25 E03.9 - Hypothyroidism, unspecified, E78.5 - Hyperlipidemia, unspecified, M85.89 - Other specified disorders of bone density and structure, multiple sites, R73.01 - Impaired fasting glucose Aspartate Amino Transferase 08/01/25 E03.9 - Hypothyroidism, unspecified, E78.5 - Hyperlipidemia, unspecified, M85.89 - Other specified disorders of bone density and structure, multiple sites, R73.01 - Impaired fasting glucose XR DEXA axial skeleton 07/20/25 M85.88 - Other specified disorders of bone density and structure, other site Lipid Panel 08/01/25 E03.9 - Hypothyroidism, unspecified, E78.5 - Hyperlipidemia, unspecified, M85.89 - Other specified disorders of bone density and structure, multiple sites, R73.01 - Impaired fasting glucose Vitamin D 25-OH Total 08/01/25 E03.9 - Hypothyroidism, unspecified, E78.5 - Hyperlipidemia, unspecified, M85.89 - Other specified disorders of bone density and structure, multiple sites, R73.01 - Impaired fasting glucose Thyroid Stimulating Hormone 08/01/25 E03.9 - Hypothyroidism, unspecified, E78.5 - Hyperlipidemia, unspecified, M85.89 - Other specified disorders of bone density and structure, multiple sites, R73.01 - Impaired fasting glucose Free T4 (Free Thyroxine) 08/01/25 E03.9 - Hypothyroidism, unspecified, E78.5 - Hyperlipidemia, unspecified, M85.89 - Other specified disorders of bone density and structure, multiple sites, R73.01 - Impaired fasting glucose Medications: New varenicline tartrate PO PER PKG DIR 53 ea 0RF Refilled levothyroxine 75 mcg PO DAILY 90 tabs 4RF
[2025-07-20 13:39] VITALS: BP 130/64; PULSE 89; RESP 16; TEMP 37.1; O2SAT 95; BMI 31.4
--- OUTSIDE RECORDS SUMMARY | 2025-07-20 16:34 | XMS_ITS | Patient Health Record ---
Author Organization [facility] Address [address] [place] [address] Care Team Providers Care Metal Fabricator Welder Name Role Phone Nanette Sanford MD Primary Care Provider Real Juárez [phone] Reason For Referral No Information Medications Medication SIG (Take, Route, Frequency, Duration) Notes Start Date End Date Status Omeprazole 20 MG Capsule Delayed Release 1 capsule Orally Once a day Active MoviPrep 100 GM Solution Reconstituted as directed Orally as directed; Duration: 1 dose 11/14/2013 Active Levothyroxine Sodium 75 MCG Tablet 1 tablet on an empty stomach in the morning Orally Once a day Active Social History Social History Additional Details Category Social Info Options Details Miscellaneous: Marital status: 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 Section Notes: Nonsmoker; occasional wine Problems Problem Type SNOMED Code ICD Code Onset Dates Problem Status W/U Status Risk Notes Problem Screening for colon cancer (588023145) Screening for colon cancer (V76.51) Active confirmed Problem Gastroesophageal reflux disease (880116803) GERD (gastroesophag eal reflux disease) (530.81) Active confirmed Problem History of adenomatous polyp of colon (209376672) History of adenomatous polyp of colon (V12.72) Active confirmed Plan Of Treatment Future Test Test Name Order Date UPPER GI ENDOSCOPY 11/13/2013 COLONOSCOPY 11/13/2013 Insurance Providers Payer Name Payer Address Payer Phone Subscriber Number Group Number Insured Name Patient Relationship to Insured Coverage Start Date Coverage End Date [facility] [id number] [place], [place] [id number] [phone] [id number] ALLEY RODRIGUEZ Self - patient is the insured Medical (General) History Medical History History ICD Code Hypothyroidism Screening colonoscopy in 10/29 009-one small tubular adenoma removed; also noted was some diverticulosis pancreatitis in 08/2007--prob ably due to alcohol--she had a negative workup including an abdominal ultrasound, MRCP, and normal CA 19-9. Denies ID,DM,CVA,Lung disease,renal dise ase GERD Surgical History Surgery Date(Month/Year) tonsillectomy and adenoidectomy
== END 2025-07-20 14:48 | disposition home or self-care (01) ==
LOC: HO.HMCC 13:11
PROVIDERS: PCP Internal Medicine; Visit Provider Internal Medicine
DX: Z00.01 Encounter for general adult medical examination with abnormal findings (principal); E03.9 Hypothyroidism, unspecified; E78.5 Hyperlipidemia, unspecified; R73.01 Impaired fasting glucose; M85.89 Other specified disorders of bone density and structure, multiple sites; F17.210 Nicotine dependence, cigarettes, uncomplicated

== ENCOUNTER → 2025-07-20 13:11 | Outpatient (BNVA) | payer OTHER, SELFPAY | PROVIDERS: PCP Internal Medicine; Visit Provider Internal Medicine | DX: Z13.31 Encounter for screening for depression (principal); Z13.39 Encounter for screening examination for other mental health and behavioral disorders | CPT/HCPCS: 96127 ==